=== PATIENT | female | born 1950 | race Caucasian/White ===

== ENCOUNTER 2016-07-02 22:17 | Emergency (ER) | payer MEDICAID ==
[~2016-07-02] VITALS: Ht 157.5 cm; Wt 38.1 kg
[~2016-07-02 22:17] MED LIST: MOBIC7.5 MG ORAL
[2016-07-02] MEDS ORDERED: MELATONIN 1 MG1 EAC1 ORAL (23:07)
[2016-07-02] MEDS ORDERED: TRAZODONE HCL150 MG ORAL (23:07)
[2016-07-02] MEDS ORDERED: KLONOPIN1 MG ORAL (23:07)
[2016-07-02 23:23] VITALS: BP 126/79
[2016-07-02] MEDS ORDERED: metroNIDAZOLE 500mg tab ORAL ONE (23:30)
[2016-07-02] MEDS ORDERED: Ciprofloxacin 500mg tab ORAL ONE (23:30)
[2016-07-02] MEDS ORDERED: CIPROFLOXACIN500 M2 ORAL (23:43)
[2016-07-02] MEDS ORDERED: METRONIDAZOLE500 MG ORAL (23:43)
--- NOTE | 2016-07-02 23:44 | Emergency Room Report ---
History of Present Illness General Chief Complaint: Diarrhea Source: Patient Present Illness HPI This is a 66-year-old female with no significant past medical history. She present with chief complaint of watery diarrhea for about 8-9 days. To 2 episode day. Denies any fever chills denies any abdominal pain. Been try over- the-counter medication without much relief. Denies any other complaint. Denies any nausea or vomiting. No recent travel or use of well water. Allergies: Coded Allergies: No Known Allergies (Unverified , 05/25/16) Patient History Past Medical History: see triage record, old chart reviewed Past Surgical History: other Pertinent Family History: none Social History: Denies: smoking Now: No Immunizations: other Reviewed Nursing Documentation: PMH: Agreed, PSxH: Agreed Nursing Documentation-PMH Past Medical History: No Stated History Review of Systems Eye: Denies: blurred vision, eye pain ENT: Denies: ear pain, nose congestion, throat swelling Respiratory: Denies: cough, shortness of breath Cardiovascular: Denies: chest pain, palpitations Gastrointestinal: Reports: diarrhea, Denies: abdominal pain, nausea, vomiting Musculoskeletal: Denies: back pain, joint pain Skin: Denies: rash Neurological: Denies: headache, numbness Endocrine: Denies: increased thirst, increased urine Hematologic/Lymphatic: Denies: easy bruising All Other Systems: negative except mentioned in HPI Physical Exam Vital Signs Date Time Temp Pulse Resp B/P Pulse Ox O2 Delivery O2 Flow Rate FiO2 07/02/16 22:59 99.0 84 16 126/79 98 Room Air vitals normal Sp02 EP Interpretation: reviewed, normal General Appearance: no apparent distress, thin Head: normocephalic, atraumatic Eyes: bilateral eye EOMI, bilateral eye PERRL ENT: hearing grossly normal, normal pharynx Neck: full range of motion, supple, no meningismus Respiratory: chest non-tender, lungs clear, normal breath sounds Cardiovascular #1: regular rate, rhythm, no murmur Gastrointestinal: normal bowel sounds, non tender, no mass, no organomegaly, no bruit, non-distended Musculoskeletal: back normal, gait/station normal, normal range of motion Psychiatric: mood/affect normal Skin: warm/dry Medical Decision Making Diagnostic Impression: Primary Impression: Diarrhea Qualified Codes: A09 - Infectious gastroenteritis and colitis, unspecified ER Course Patient with diarrhea for 8-9 days. Because of the duration, ongoing for antibiotics. No evidence of acute abdomen. No evidence of obstruction. She has no recent antibiotic use. No evidence of obstruction. Last Vital Signs Date Time Temp Pulse Resp B/P Pulse Ox O2 Delivery O2 Flow Rate FiO2 07/02/16 23:23 99.0 84 16 126/79 99 Room Air Status: improved Disposition: HOME, SELF-CARE Condition: Stable Scripts Metronidazole* (FLAGYL*) 500 Mg Tablet 500 MG ORAL BID, #14 TAB Prov: ELIO SMALL M.D. 07/02/16 Ciprofloxacin Hcl* (CIPROFLOXACIN HCL*) 500 Mg Tablet 500 MG ORAL Q12H, #14 TAB 0 Refills Prov: ELIO SMALL M.D. 07/02/16 Referrals: NON PHYSICIAN (PCP) Patient Instructions: Diarrhea, Adult Additional Instructions: Followup with your DrStacy in 2 to 3 days. You may need to do a stool culture. Return if symptom worsen. ELIO SMALL M.D. Jul 02, 2016 23:44
[2016-07-02 23:59] VITALS: BP 126/79
== END 2016-07-03 00:02 | disposition home or self-care (01) ==
LOC: EMR 23:32
DX: R19.7 Diarrhea, unspecified (principal)
CPT/HCPCS: 99282

== ENCOUNTER 2016-07-05 17:03 | Emergency (ER) | payer MEDICAID ==
[~2016-07-05] VITALS: Ht 157.5 cm; Wt 38.6 kg
[~2016-07-05 17:03] MED LIST changes: +CIPROFLOXACIN500 M2 ORAL; +KLONOPIN1 MG ORAL; +MELATONIN 1 MG1 EAC1 ORAL; +METRONIDAZOLE500 MG ORAL; +TRAZODONE HCL150 MG ORAL
[2016-07-05 17:04] VITALS: BP 126/80
[2016-07-05 18:28] LABS: APPEARANCE,URINE CLEAR; KETONES,URINE NEGATIVE (NEGATIVE); LEUKOCYTE ESTERASE ,URINE NEGATIVE (NEGATIVE); NITRITE,URINE NEGATIVE (NEGATIVE); PH,URINE 6.5 (4.5-8.0); PROTEIN,URINE NEGATIVE (NEGATIVE); UROBILINOGEN,URINE NORMAL MG/DL (0.0-1.0)
[2016-07-05 18:43] LABS: ALANINE AMINOTRANSFERASE 14 U/L (3-33); ALBUMIN/GLOBULIN RATIO 1.3 (1.0-2.7); ANION GAP 14 (5-15); ASPARTATE AMINO TRANSFERASE 23 U/L (5-40); CALCIUM 9.5 mg/dL (8.6-10.2); CARBON DIOXIDE 26 mEQ/L (20-30); CHLORIDE 95 mEQ/L (98-107); CREATININE 0.7 mg/dL (0.5-0.9); GLOMERULAR FILTRATION RATE > 60 mL/min (>60); HEMOLYSIS 84; LIPASE 27 U/L (< 60); POTASSIUM 3.9 mEQ/L (3.4-4.9); SODIUM 135 mEQ/L (135-145); TOTAL PROTEIN 6.9 g/dL (6.6-8.7)
[2016-07-05 19:05] VITALS: BP 124/79
[2016-07-05 19:16] LABS: BASOPHILS % (AUTO) 1.1 % (0.0-2.0); EOSINOPHILS % (AUTO) 2.1 % (0.0-3.0); LYMPHOCYTES % (AUTO) 9.4 % (20.0-45.0); MEAN CORPUSCULAR HEMOGLOBIN 28.7 PG (27.0-31.0); MEAN CORPUSCULAR HGB CONC 31.7 G/DL (32.0-36.0); MEAN CORPUSCULAR VOLUME 90 FL (80-99); MEAN PLATELET VOLUME 6.8 FL (6.5-10.1); MONOCYTES % (AUTO) 11.5 % (1.0-10.0); NEUTROPHILS % (AUTO) 75.8 % (45.0-75.0); PLATELET COUNT 307 K/UL (150-450); RED BLOOD COUNT 3.91 M/UL (4.20-5.40); RED CELL DISTRIBUTION WIDTH 10.6 % (11.6-14.8); WHITE BLOOD COUNT 7.6 K/UL (4.8-10.8)
[2016-07-05] MEDS ORDERED: SULFASALAZINE500 MG ORAL ×2 (20:22→21:02)
[2016-07-05 21:38] VITALS: BP 118/89
[2016-07-05 21:46] VITALS: BP 124/79
--- NOTE | 2016-07-05 22:09 | Emergency Room Report ---
History of Present Illness General Chief Complaint: Diarrhea Source: EMS Present Illness HPI The patient is a 66-year-old female presenting for diarrhea. The patient states the diarrhea began 10 days prior and was seen in this emergency department 5 days prior for the same complaint. The patient was diagnosed with gastroenteritis and was given prescriptions for ciprofloxacin and Flagyl. The patient did not have any imaging done at that time. The patient states that the diarrhea has decreased in frequency but is continuing. The patient is concerned for dehydration. The patient denies any pain, fever, chills, dizziness, blurred vision, fatigue, melena, hematochezia, nausea, vomiting, shortness of breath, chest pain Allergies: Coded Allergies: No Known Allergies (Unverified , 05/25/16) Patient History Past Medical History: see triage record Pertinent Family History: none Reviewed Nursing Documentation: PMH: Agreed, PSxH: Agreed Nursing Documentation-PMH Past Medical History: No History, Except For Hx Gastrointestinal Problems: No - [place] Review of Systems All Other Systems: negative except mentioned in HPI Physical Exam Vital Signs Date Time Temp Pulse Resp B/P Pulse Ox O2 Delivery O2 Flow Rate FiO2 07/05/16 16:57 98.1 73 20 126/78 99 Room Air Sp02 EP Interpretation: reviewed, normal General Appearance: no apparent distress, alert, GCS 15, non-toxic Head: normocephalic, atraumatic Eyes: bilateral eye PERRL, bilateral eye normal inspection ENT: hearing grossly normal, normal pharynx, no angioedema, normal voice Neck: full range of motion, supple/symm/no masses Respiratory: chest non-tender, lungs clear, normal breath sounds, no wheezing, speaking full sentences Cardiovascular #1: regular rate, rhythm, no edema Gastrointestinal: normal bowel sounds, non tender, soft, non-distended, no guarding, no rebound Genitourinary: normal inspection, no CVA tenderness Musculoskeletal: back normal, gait/station normal, normal range of motion, non- tender Neurologic: alert, oriented x3, responsive, motor strength/tone normal, sensory intact, speech normal Psychiatric: judgement/insight normal, memory normal, mood/affect normal, no suicidal/homicidal ideation Skin: normal color, no rash, warm/dry, well hydrated Medical Decision Making PA Attestation Dr. Lewis is my supervising physician. Patient management was discussed with my supervising physician Diagnostic Impression: Primary Impression: Gastroenteritis ER Course The patient is a 66-year-old female presenting for diarrhea. Differential diagnoses considered include but not limited to gastroenteritis, colitis, pancreatitis, appendicitis, UTI PE: Vitals WNL. NAD. Abdomen: Normal appearance. Non distended. No ecchymosis. Normal BS. Non TTP. No McBurney point tenderness. No guarding. No CVA tenderness Labs: CBC unremarkable. No leukocytosis. CMP unremarkable no electrolyte imbalance. Urinalysis unremarkable CT abd/pelvis unremarkable. The patient is given IV fluids The patient will continue taking the prior prescribed medications. The patient is also given a new prescription for sulfasalazine. The patient states that she is feeling better. ER precautions are given and the patient will follow up with primary care physician Laboratory Tests Test 07/05/16 18:00 07/05/16 19:00 Urine Color Pale yellow Urine Appearance Clear Urine pH 6.5 (4.5-8.0) Urine Specific [place] 1.005 (1.005-1.035) Urine Protein Negative (NEGATIVE) Urine Glucose (UA) Negative (NEGATIVE) Urine Ketones Negative (NEGATIVE) Urine Occult Blood Negative (NEGATIVE) Urine Nitrite Negative (NEGATIVE) Urine Bilirubin Negative (NEGATIVE) Urine Urobilinogen Normal MG/DL (0.0-1.0) Urine Leukocyte Esterase Negative (NEGATIVE) Sodium Level 135 mEQ/L (135-145) Potassium Level 3.9 mEQ/L (3.4-4.9) Chloride Level 95 mEQ/L (98-107) L Carbon Dioxide Level 26 mEQ/L (20-30) Anion Gap 14 (5-15) Blood Urea Nitrogen 6 mg/dL (7-23) L Creatinine 0.7 mg/dL (0.5-0.9) Estimate Glomerular Filtration Rate > 60 mL/min (>60) Glucose Level 86 mg/dL (74-106) Calcium Level 9.5 mg/dL (8.6-10.2) Total Bilirubin 0.5 mg/dL (0.0-1.2) Aspartate Amino Transferase (AST) 23 U/L (5-40) Alanine Aminotransferase (ALT) 14 U/L (3-33) Alkaline Phosphatase 73 U/L (35-104) Total Protein 6.9 g/dL (6.6-8.7) Albumin 3.9 g/dL (3.5-5.2) Globulin 3.0 g/dL Albumin/Globulin Ratio 1.3 (1.0-2.7) Lipase 27 U/L (< 60) White Blood Count 7.6 K/UL (4.8-10.8) Red Blood Count 3.91 M/UL (4.20-5.40) L Hemoglobin 11.2 G/DL (12.0-16.0) L Hematocrit 35.4 % (37.0-47.0) L Mean Corpuscular Volume 90 FL (80-99) Mean Corpuscular Hemoglobin 28.7 PG (27.0-31.0) Mean Corpuscular Hemoglobin Concent 31.7 G/DL (32.0-36.0) L Red Cell Distribution Width 10.6 % (11.6-14.8) L Platelet Count 307 K/UL (150-450) Mean Platelet Volume 6.8 FL (6.5-10.1) Neutrophils (%) (Auto) 75.8 % (45.0-75.0) H Lymphocytes (%) (Auto) 9.4 % (20.0-45.0) L Monocytes (%) (Auto) 11.5 % (1.0-10.0) H Eosinophils (%) (Auto) 2.1 % (0.0-3.0) Basophils (%) (Auto) 1.1 % (0.0-2.0) Lab Results Impression CBC unremarkable. No leukocytosis. CMP unremarkable no electrolyte imbalance. Urinalysis unremarkable CT/MRI/US Diagnostic Results CT/MRI/US Diagnostic Results : Imaging Test Ordered: CT abd/pelvis Impression Unremarkable Last Vital Signs Date Time Temp Pulse Resp B/P Pulse Ox O2 Delivery O2 Flow Rate FiO2 07/05/16 21:46 98.1 89 18 124/79 99 Room Air Status: improved Disposition: HOME, SELF-CARE Condition: Improved Scripts Sulfasalazine* (AZULFIDINE*) 500 Mg Tablet 500 MG ORAL FOUR TIMES A DAY, #20 TAB Prov: GERRI QUIJANO 07/05/16 Patient Instructions: Viral Gastroenteritis, Adult, Diarrhea, Adult Additional Instructions: I discussed my findings with the patient. All questions and concerns have been answered. Treatment and medication compliance have been addressed. I advised the patient that they need to follow up with PMD in 3-5 days. Return to ED if symptoms worsen, new symptoms arise, or if needed for any reason. Patient verbalized understanding of discharge instructions. GERRI QUIJANO Jul 05, 2016 22:09
--- NOTE | 2016-07-06 08:45 | Diagnostic Imaging Report ---
Clinical Indication: Abdominal pain and diarrhea Technique: No oral contrast utilized, per emergency room physician request IV administration nonionic contrast. Venous phase spiral acquisition obtained through the abdomen and pelvis. Multiplanar reconstructions were generated. Total dose length product 610 mGycm. CTDIvol(s) 12 mGy Comparison: None Findings: Lack of oral contrast, paucity of body fat with result in lack of inherent soft tissue contrast limits assessment of the GI tract. The appendix is not clearly demonstrated. No evidence of diverticulosis or diverticulitis. There is mild distention of the rectum by feces. There is also considerable dense fecal material throughout the colon. Small bowel is diffusely gas filled but not frankly distended. No free or loculated intraperitoneal air or fluid. Distal esophagus, stomach, duodenum are grossly unremarkable. There is equivocal mild wall thickening of the gallbladder. However, no radiopaque calculi are evident. No definite biliary ductal dilatation. No focal hepatic abnormality. The pancreas, spleen, adrenals are all unremarkable. The kidneys demonstrate bilateral subcentimeter low-attenuation lesions which are too small to characterize. No renal calculi, hydronephrosis, hydroureter. No mesenteric or retroperitoneal mass or adenopathy. There is a 1.8 cm cyst in the right ovary. No pelvic mass or adenopathy. Unremarkable bladder. The included lung bases are clear except for minimal basilar scarring and atelectasis. The bones are unremarkable. Impression: Limited exam, as described Possible constipation Equivocal mild gallbladder wall thickening. No definite gallstones. Consider ultrasound for better characterization if there is clinical suspicion for acute cholecystitis No definite acute abnormality otherwise. Bilateral subcentimeter low-attenuation lesions, too small to characterize, most likely benign simple cortical cysts. No further followup necessary 1.8 cm right ovarian cyst. Consider further followup with ultrasound This agrees with the preliminary interpretation provided overnight by Dr. Arias The CT scanner at [facility] is accredited by the [place] [employer] and the scans are performed using protocols designed to limit radiation exposure to as low as reasonably achievable to attain images of sufficient resolution adequate for diagnostic evaluation.
== END 2016-07-05 21:46 | disposition home or self-care (01) ==
LOC: EDBD 17:03 → EMR 17:40
DX: K52.9 Noninfective gastroenteritis and colitis, unspecified (principal)
CPT/HCPCS: 36415; 74177; 80053; 81003; 83690; 85025; 96374; 96375; 99284; J2405; Q9967

== ENCOUNTER 2016-08-21 19:12 | Emergency (ER) | payer MEDICAID ==
[~2016-08-21] VITALS: Ht 157.5 cm; Wt 36.3 kg
[~2016-08-21 19:12] MED LIST changes: +SULFASALAZINE500 MG ORAL
[2016-08-21 19:17] VITALS: BP 121/72
[2016-08-21 20:51] LABS: ALANINE AMINOTRANSFERASE 13 U/L (3-33); ALBUMIN/GLOBULIN RATIO 1.7 (1.0-2.7); ANION GAP 14 (5-15); ASPARTATE AMINO TRANSFERASE 18 U/L (5-40); CALCIUM 9.2 mg/dL (8.6-10.2); CARBON DIOXIDE 28 mEQ/L (20-30); CHLORIDE 96 mEQ/L (98-107); CREATININE 0.8 mg/dL (0.5-0.9); GLOMERULAR FILTRATION RATE > 60 mL/min (>60); HEMOLYSIS 9; POTASSIUM 3.9 mEQ/L (3.4-4.9); SODIUM 138 mEQ/L (135-145); TOTAL PROTEIN 6.3 g/dL (6.6-8.7)
[2016-08-21 20:59] LABS: BASOPHILS % (AUTO) 1.2 % (0.0-2.0); EOSINOPHILS % (AUTO) 0.4 % (0.0-3.0); LYMPHOCYTES % (AUTO) 7.1 % (20.0-45.0); MEAN CORPUSCULAR HEMOGLOBIN 28.6 PG (27.0-31.0); MEAN CORPUSCULAR HGB CONC 32.2 G/DL (32.0-36.0); MEAN CORPUSCULAR VOLUME 89 FL (80-99); MEAN PLATELET VOLUME 7.9 FL (6.5-10.1); MONOCYTES % (AUTO) 7.3 % (1.0-10.0); NEUTROPHILS % (AUTO) 84.1 % (45.0-75.0); PLATELET COUNT 246 K/UL (150-450); RED BLOOD COUNT 4.34 M/UL (4.20-5.40); RED CELL DISTRIBUTION WIDTH 12.6 % (11.6-14.8); WHITE BLOOD COUNT 7.1 K/UL (4.8-10.8)
[2016-08-21 21:49] LABS: APPEARANCE,URINE CLEAR; KETONES,URINE NEGATIVE (NEGATIVE); LEUKOCYTE ESTERASE ,URINE NEGATIVE (NEGATIVE); NITRITE,URINE NEGATIVE (NEGATIVE); PH,URINE 8 (4.5-8.0); PROTEIN,URINE NEGATIVE (NEGATIVE); UROBILINOGEN,URINE NORMAL MG/DL (0.0-1.0)
[2016-08-21] MEDS ORDERED: BENTYL10 MG ORAL (22:18)
[2016-08-21] MEDS ORDERED: COLACE100 MG ORAL (22:18)
[2016-08-21 23:08] VITALS: BP 145/83
--- NOTE | 2016-08-22 01:48 | Emergency Room Report ---
History of Present Illness General Chief Complaint: Diarrhea Source: Patient Present Illness HPI The patient is a 66-year-old female presented after reported diarrhea. Patient had been having diarrhea for approximately 2 months. She had reported gradual onset of symptoms. Patient had previously been prescribed antibiotics which seem to make a diarrhea somewhat worse. She had I reportedly had negative CT imaging previously. She denied vomiting. She reported having some chronic back pain. The patient reportedly has a scheduled appointment with a display card writer Allergies: Coded Allergies: No Known Allergies (Unverified , 05/25/16) Patient History Past Medical History: see triage record Reviewed Nursing Documentation: PMH: Agreed, PSxH: Agreed Nursing Documentation-PMH Hx Gastrointestinal Problems: No - [place] Review of Systems All Other Systems: negative except mentioned in HPI Physical Exam Vital Signs Date Time Temp Pulse Resp B/P Pulse Ox O2 Delivery O2 Flow Rate FiO2 08/21/16 19:09 98.1 86 16 118/68 100 Room Air General Appearance: no apparent distress, alert, GCS 15, Chronically Ill ENT: normal pharynx Neck: full range of motion, supple Respiratory: chest non-tender, lungs clear, normal breath sounds Cardiovascular #1: normal peripheral pulses, regular rate, rhythm Gastrointestinal: normal bowel sounds Musculoskeletal: normal inspection, back normal Neurologic: normal inspection, alert, oriented x3, responsive Skin: normal inspection Medical Decision Making Diagnostic Impression: Primary Impression: Chronic diarrhea of unknown origin ER Course Patient presented for abdominal pain. Differential diagnoses included ischemic bowel, appendicitis, perforated viscus, abdominal aortic aneurysm, inferior myocardial infarction, viral gastroenteritis Because of complexity of patient's case laboratory testing and imaging studies were ordered. Laboratory testing was unremarkable was noted to have a normal white blood count normal electrolyte panel. Patient was given IV fluids . KUB showed a large amount of retained stool. There is no evidence of obstruction. The patient is advised to follow up with her gastroenterology appointment previous scheduled. Patient is advised to return if any worsening condition or if any changes in status that are concerning. Laboratory Tests Test 08/21/16 20:16 08/21/16 21:17 White Blood Count 7.1 K/UL (4.8-10.8) Red Blood Count 4.34 M/UL (4.20-5.40) Hemoglobin 12.4 G/DL (12.0-16.0) Hematocrit 38.6 % (37.0-47.0) Mean Corpuscular Volume 89 FL (80-99) Mean Corpuscular Hemoglobin 28.6 PG (27.0-31.0) Mean Corpuscular Hemoglobin Concent 32.2 G/DL (32.0-36.0) Red Cell Distribution Width 12.6 % (11.6-14.8) Platelet Count 246 K/UL (150-450) Mean Platelet Volume 7.9 FL (6.5-10.1) Neutrophils (%) (Auto) 84.1 % (45.0-75.0) H Lymphocytes (%) (Auto) 7.1 % (20.0-45.0) L Monocytes (%) (Auto) 7.3 % (1.0-10.0) Eosinophils (%) (Auto) 0.4 % (0.0-3.0) Basophils (%) (Auto) 1.2 % (0.0-2.0) Sodium Level 138 mEQ/L (135-145) Potassium Level 3.9 mEQ/L (3.4-4.9) Chloride Level 96 mEQ/L (98-107) L Carbon Dioxide Level 28 mEQ/L (20-30) Anion Gap 14 (5-15) Blood Urea Nitrogen 17 mg/dL (7-23) Creatinine 0.8 mg/dL (0.5-0.9) Estimate Glomerular Filtration Rate > 60 mL/min (>60) Glucose Level 102 mg/dL (74-106) Calcium Level 9.2 mg/dL (8.6-10.2) Total Bilirubin 0.3 mg/dL (0.0-1.2) Aspartate Amino Transferase (AST) 18 U/L (5-40) Alanine Aminotransferase (ALT) 13 U/L (3-33) Alkaline Phosphatase 74 U/L (35-104) Total Protein 6.3 g/dL (6.6-8.7) L Albumin 4.0 g/dL (3.5-5.2) Globulin 2.3 g/dL Albumin/Globulin Ratio 1.7 (1.0-2.7) Urine Color Pale yellow Urine Appearance Clear Urine pH 8 (4.5-8.0) Urine Specific [place] 1.010 (1.005-1.035) Urine Protein Negative (NEGATIVE) Urine Glucose (UA) Negative (NEGATIVE) Urine Ketones Negative (NEGATIVE) Urine Occult Blood Negative (NEGATIVE) Urine Nitrite Negative (NEGATIVE) Urine Bilirubin Negative (NEGATIVE) Urine Urobilinogen Normal MG/DL (0.0-1.0) Urine Leukocyte Esterase Negative (NEGATIVE) Last Vital Signs Date Time Temp Pulse Resp B/P Pulse Ox O2 Delivery O2 Flow Rate FiO2 08/21/16 23:08 80 14 145/83 100 Room Air 08/21/16 19:17 98.3 Status: improved Disposition: HOME, SELF-CARE Condition: Stable Scripts Docusate Sodium* (COLACE*) 100 Mg Capsule 100 MG ORAL TWICE A DAY, #30 CAP Prov: Sonny Lewis 08/21/16 Dicyclomine Hcl* (BENTYL*) 10 Mg Capsule 10 MG ORAL FOUR TIMES A DAY, #14 CAP Prov: Sonny Lewis 08/21/16 Patient Instructions: Diarrhea, Adult oSnny Lewis Aug 22, 2016 01:48
--- NOTE | 2016-08-22 11:05 | Diagnostic Imaging Report ---
Indication: Abdominal pain Comparison: None Single view of the abdomen obtained There is excess amount of stool in the colon. Bowel gas pattern is nonspecific. Generalized osteopenia is present. Impression: Fecal impaction
== END 2016-08-21 23:43 | disposition home or self-care (01) ==
LOC: EDBD 19:12 → EMR 19:39
DX: R19.7 Diarrhea, unspecified (principal)
CPT/HCPCS: 36415; 74000; 80053; 81003; 85025; 96360

== ENCOUNTER 2016-09-04 04:59 | Emergency (ER) | payer MEDICAID ==
[~2016-09-04] VITALS: Ht 157.5 cm; Wt 36.3 kg
[~2016-09-04 04:59] MED LIST changes: +BENTYL10 MG ORAL; +COLACE100 MG ORAL
[2016-09-04] MEDS ORDERED: TRAMADOL HCL50 MG ORAL (05:02)
[2016-09-04] MEDS ORDERED: XANAX0.25 MG ORAL (05:02)
--- NOTE | 2016-09-04 05:10 | Emergency Room Report ---
History of Present Illness General Chief Complaint: Diarrhea Source: Patient Present Illness HPI This is a 66-year-old female with history of anorexia. She presents with chief complaint of dehydration and "I need electrolytes." She said that she has diarrhea for the last several months. Been here several times for it. She was at [place] and sign out AMA. Denies any pain. Denies any fever or chills. Was on antibiotics before. Diarrhea is watery. No other complaint. No pain. Allergies: Coded Allergies: No Known Allergies (Unverified , 05/25/16) Patient History Past Medical History: see triage record, old chart reviewed, psych hx Past Surgical History: other Pertinent Family History: none Social History: Denies: smoking Now: No Immunizations: other Reviewed Nursing Documentation: PMH: Agreed, PSxH: Agreed Nursing Documentation-PMH Past Medical History: No History, Except For Hx Gastrointestinal Problems: No - [place] Review of Systems Eye: Denies: blurred vision, eye pain ENT: Denies: ear pain, nose congestion, throat swelling Respiratory: Denies: cough, shortness of breath Cardiovascular: Denies: chest pain, palpitations Gastrointestinal: Reports: diarrhea, Denies: abdominal pain, nausea, vomiting Musculoskeletal: Denies: back pain, joint pain Skin: Denies: rash Neurological: Denies: headache, numbness Endocrine: Denies: increased thirst, increased urine Hematologic/Lymphatic: Denies: easy bruising All Other Systems: negative except mentioned in HPI Physical Exam Vital Signs Date Time Temp Pulse Resp B/P Pulse Ox O2 Delivery O2 Flow Rate FiO2 09/04/16 04:58 98.1 85 18 143/86 100 Room Air vitals unremarkable Sp02 EP Interpretation: reviewed, normal General Appearance: no apparent distress, alert, thin Head: normocephalic, atraumatic Eyes: bilateral eye EOMI, bilateral eye PERRL ENT: hearing grossly normal, normal pharynx Neck: full range of motion, supple, no meningismus Respiratory: chest non-tender, lungs clear, normal breath sounds Cardiovascular #1: regular rate, rhythm, no murmur Gastrointestinal: normal bowel sounds, non tender, no mass, no organomegaly, no bruit, non-distended Musculoskeletal: back normal, gait/station normal, normal range of motion Neurologic: alert, oriented x3 Psychiatric: anxious Skin: warm/dry Medical Decision Making Diagnostic Impression: Primary Impression: Chronic diarrhea of unknown origin ER Course Patient presents with diarrhea. Previous CT scan and x-ray showed she is constipated. Probably secondary to pain medication. The diarrhea is probably liquid stool around it. She would benefit from a sulfur chloride operator. Is also most likely psychogenic in nature. I see no evidence of an acute abdomen. Labs unremarkable. She's got dehydrated. We'll discharge home. Lab Results Impression labs normal Last Vital Signs Date Time Temp Pulse Resp B/P Pulse Ox O2 Delivery O2 Flow Rate FiO2 09/04/16 04:58 98.1 85 18 143/86 100 Room Air Status: improved Disposition: HOME, SELF-CARE Condition: Stable Patient Instructions: Diarrhea, Adult Additional Instructions: Followup with your Dr. in 2-3 days. You may benefit from a sulfur chloride operator referral if not been done. Return if symptom worsen. ELIO SMALL M.D. Sep 04, 2016 05:10
[2016-09-04 05:18] VITALS: BP 138/79
[2016-09-04 05:30] LABS: BASOPHILS % (AUTO) 0.9 % (0.0-2.0); EOSINOPHILS % (AUTO) 0.2 % (0.0-3.0); LYMPHOCYTES % (AUTO) 8.7 % (20.0-45.0); MEAN CORPUSCULAR HEMOGLOBIN 28.9 PG (27.0-31.0); MEAN CORPUSCULAR HGB CONC 33.1 G/DL (32.0-36.0); MEAN CORPUSCULAR VOLUME 87 FL (80-99); MEAN PLATELET VOLUME 6.8 FL (6.5-10.1); MONOCYTES % (AUTO) 8.1 % (1.0-10.0); NEUTROPHILS % (AUTO) 82.1 % (45.0-75.0); PLATELET COUNT 298 K/UL (150-450); RED BLOOD COUNT 4.47 M/UL (4.20-5.40); RED CELL DISTRIBUTION WIDTH 12.6 % (11.6-14.8); WHITE BLOOD COUNT 8.4 K/UL (4.8-10.8)
[2016-09-04 05:45] LABS: ANION GAP 16 (5-15); CALCIUM 9.5 mg/dL (8.6-10.2); CARBON DIOXIDE 26 mEQ/L (20-30); CHLORIDE 97 mEQ/L (98-107); CREATININE 0.6 mg/dL (0.5-0.9); GLOMERULAR FILTRATION RATE > 60 mL/min (>60); HEMOLYSIS 3; POTASSIUM 3.5 mEQ/L (3.4-4.9); SODIUM 139 mEQ/L (135-145)
[2016-09-04 06:12] VITALS: BP 138/79
== END 2016-09-04 06:21 | disposition home or self-care (01) ==
LOC: EDBD 04:59 → EMR 05:33
DX: K52.9 Noninfective gastroenteritis and colitis, unspecified (principal)
CPT/HCPCS: 36415; 80048; 82962; 85025; 96374